=== PATIENT | male | born 1950 | race Caucasian/White ===

== ENCOUNTER → 2020-01-02 | Outpatient (CLI) | payer MEDICARE ==
--- NOTE | 2020-01-02 11:10 | ECHOS ---
STRESS ECHOCARDIOGRAM LUMASON: Vial INDICATIONS: Stress Echo MEDICATIONS: BASELINE HEART RATE: 69 BASELINE BLOOD PRESSURE: 100/59 MAXIMUM HEART RATE: 142 MAXIMUM BLOOD PRESSURE: 193/69 85% MPHR: 130 100% MPHR: 153 METS: 12.1 MAXIMUM STAGE REACHED: 4 TOTAL EXERCISE TIME: 10:30 CLINICAL INFORMATION: Baseline EKG revealed normal sinus rhythm without significant ST-T changes. Patient walked 10.5 minutes on a standard Artur protocol. Achieved a maximal heart rate of 140 beats per minute. He did not have any angina or arrhythmia. EKG did not reveal any ST- segment changes to indicate ischemia. There was no arrhythmia. The patient's heart rate was well above 85% of his predicted maximal. By EKG criteria, this is a negative stress test without evidence of ischemia. There was no angina. Baseline echo images revealed normal wall motion and wall thickening of all segments. At peak exercise, by the time images were obtained, patient's heart rate had dropped into the low 100s. However, there is no evidence to suggest ischemia. There was good augmentation of left ventricular wall motion and wall thickening of all segments suggesting that there is no stress-induced ischemia. FINAL IMPRESSION: 1. Good exercise capacity with a negative stress test by EKG criteria. 2. Normal stress echocardiogram. By the time echo images were obtained, patient's heart rate had come down rather quickly. DENNYS / PEPEN: [id number] /
== END | disposition home or self-care (01) ==
LOC: RADNMMAIN 09:02
PROVIDERS: ATTEND Internal Medicine Geriatric Medicine
DX: R07.9 Chest pain, unspecified (principal)
CPT/HCPCS: 93351

== ENCOUNTER → 2020-10-15 | Outpatient (CLI) | payer MEDICARE ==
--- NOTE | 2020-10-15 17:36 | XR ---
EXAMINATION TYPE: XR lumbar spine 2 or 3V DATE OF EXAM: 10/15/2020 COMPARISON: NONE HISTORY: Back pain TECHNIQUE: 3 views FINDINGS: The lumbar vertebra have normal alignment. Posterior elements are intact. There is no compr ession fracture. Sacroiliac joints are intact. IMPRESSION: Negative lumbar spine exam. No fracture. Atheromatous aorta.
== END | disposition home or self-care (01) ==
LOC: RADXRMAIN 16:59
PROVIDERS: ATTEND Internal Medicine Geriatric Medicine
DX: M54.9 Dorsalgia, unspecified (principal); I70.0 Atherosclerosis of aorta
CPT/HCPCS: 72100

== ENCOUNTER → 2020-10-19 | Outpatient (CLI) | payer MEDICARE ==
--- NOTE | 2020-10-20 02:42 | MR ---
EXAMINATION TYPE: MR lumbar spine wo/w con DATE OF EXAM: 10/19/2020 COMPARISON: None HISTORY: RT side lower back pain with RT leg weakness/numbness. Hx of fall 3 months ago CONTRAST: Standard multiplanar, multisequence MRI departmental protocol utilizing 7.5 mL intravenous Gadavist g adolinium contrast. The lumbar vertebra have normal alignment. Disc spaces are fairly normal for age. There is no maykel arnoldo fracture. I see no focal bone destruction. There is no lumbar paraspinal mass. The posterior kenzie ments appear intact. There is a very small posterior L5-S1 disc bulge. There is developmentally adequ ate spinal canal. There is a epidural mass in the spinal canal on the right side at the posterior asp ect of the L4 vertebral body. This does not enhance and has signal pattern consistent with sequestere d disc herniation. There is impingement on the neural foramen at right side L4-5. The visualized sacroiliac joints appear intact. 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
== END | disposition home or self-care (01) ==
LOC: RADMRIMAIN 20:58
PROVIDERS: ATTEND Internal Medicine Geriatric Medicine
DX: M51.26 Other intervertebral disc displacement, lumbar region (principal); G95.89 Other specified diseases of spinal cord
CPT/HCPCS: 72158; A9585

== ENCOUNTER → 2022-11-06 | Outpatient (CLI) | payer MEDICARE ==
[2022-11-06 15:58] LABS: HCT 45.4 % (39.6-50.0); HGB 14.6 g/dL (13.0-17.0); MCH 29.2 pg (27.0-32.0); MCHC 32.2 g/dL (32.0-37.0); MCV 90.8 fL (80.0-97.0); Mean Platelet Volume 9.6 fL (9.5-12.2); NRBC Per 100 WBC 0 /100 WBCS (0.0-0.0); Platelet Count 325 X 10*3/uL (140-440); RDW 12.7 % (11.5-14.5); WBC 6.14 X 10*3/uL (4.50-10.00)
[2022-11-06 16:10] LABS: African American GFR (CKD) 99.9 (60.0-200.0); Anion Gap 11.2 mmol/L (10.00-18.00); Blood Urea Nitrogen 12.9 mg/dL (9.0-27.0); Carbon Dioxide 27.8 mmol/L (20.0-27.5); Non-African American GFR(CKD) 86.2 (60.0-200.0); Potassium 4.7 mmol/L (3.5-5.5)
== END | disposition home or self-care (01) ==
LOC: LABPAT 10:11
PROVIDERS: ATTEND Internal Medicine Interventional Cardiology
DX: Z01.812 Encounter for preprocedural laboratory examination (principal); I25.10 Atherosclerotic heart disease of native coronary artery without angina pectoris
CPT/HCPCS: 80051; 82565; 84520; 85027

== ENCOUNTER 2022-11-13 08:37 | Day surgery (SDC) | payer MEDICARE ==
[~2022-11-13 08:37] MED LIST: ALPRAZolam 0.25 MG TAB PO PRN; ALPRAZolam 0.5 MG TAB PO PRN; ASPIRIN 325 MG TAB PO STA; ATORVASTATIN 80 MG TAB PO STA; HEPARIN SODIUM,PORCINE 10,000 UNIT in SODIUM CHLORIDE 0.9% 1,000 ML IRRIGATION PRN; HEPARIN SODIUM,PORCINE 2,500 UNIT in SODIUM CHLORIDE 0.9% 250 ML IRRIGATION PRN; NITROGLYCERIN SL TABS 0.4 MG TAB SUBLINGUAL PRN
[2022-11-13] MEDS ORDERED: SODIUM CHLORIDE 0.9% 1,000 ML IV ONE (08:49)
[2022-11-13] MEDS ORDERED: VERAPAMIL 2.5 MG/ML 2 ML AMP ONE (10:23)
[2022-11-13] MEDS ORDERED: HEPARIN SODIUM 1,000 UN/ML (10ML VL) ONE (10:23)
[2022-11-13] MEDS ORDERED: MIDAZOLAM 2 MG/2 ML VIAL IV ONE (10:32)
[2022-11-13] MEDS ORDERED: LIDOCAINE 1% INJ 10MG/ML (5 ML VIAL-PF) SQ ONE (10:34)
[2022-11-13] MEDS: VERAPAMIL SYRINGE (5 MG/10 ML) INTRAARTER ONE ×2 (10:36→10:44)
[2022-11-13] MEDS: MIDAZOLAM 2 MG/2 ML VIAL IV ONE ×2 (10:37→10:48)
[2022-11-13] MEDS: HEPARIN SODIUM 1,000 UN/ML (10ML VL) IV ONE ×3 (10:38→11:47)
[2022-11-13] MEDS ORDERED: niCARdipine 25 MG/10 ML VIAL ONE (11:01)
[2022-11-13] MEDS ORDERED: IOPAMIDOL-370 100ML BTL INJ ONE ×2 (11:26→11:46)
[2022-11-13] MEDS ORDERED: TICAGRELOR 90 MG TAB ONE (11:27)
[2022-11-13] MEDS ORDERED: TICAGRELOR 90 MG TAB PO ONE (11:30)
[2022-11-13] MEDS ORDERED: niCARdipine Syringe (1,000 mcg/10 mL) INTRACORON ONE (11:39)
[2022-11-13] MEDS ORDERED: NITROGLYCERIN 1000MCG/10ML SYRINGE INTRACORON ONE (11:40)
[2022-11-13] MEDS ORDERED: CLOBETASOL PROP 0.05% CR 15GM TOPICAL PRN (11:45)
[2022-11-13] MEDS ORDERED: ATROPINE SULFATE 0.1 MG/ML 10ML SYRINGE IV PRN (11:46)
[2022-11-13] MEDS ORDERED: ZOLPIDEM 5 MG TAB PO PRN (11:46)
[2022-11-13] MEDS ORDERED: RX INFO: IV CONTRAST WAS GIVEN 1 EACH MISC MISCELLANE PRN (11:46)
[2022-11-13] MEDS ORDERED: MAG HYDROX/AL HYDROX/SIMETH 30 ML CUP PO PRN (11:46)
[2022-11-13] MEDS ORDERED: NITROGLYCERIN SL TABS 0.4 MG TAB SUBLINGUAL PRN (11:46)
--- NOTE | 2022-11-13 11:53 | P.PCN ---
Date of Procedure: 11/13/22 Operative Findings: CARDIAC CATHETERIZATION AND PERCUTANEOUS CORONARY INTERVENTION PERFORMING PHYSICIAN: Benjamin Scanlon MD, VI PROCEDURE PERFORMED: 1. Selective right and left coronary angiogram 2. Left heart catheterization 3. Successful stenting of proximal LAD using 3.5 x 15 mm Xience VANESSA with an excellent angiographic results with adjunctive use off intravascular ultrasound 4. Adjunctive use off orbital atherectomy and lithotripsy balloon INDICATION: Chest discomfort in this 72-year-old gentleman who underwent coronary CTA and that showed critical disease involving the proximal LAD COMPLICATION: None APPROACH: Right radial artery LEVEL OF SEDATION: Moderate with the sedation time off 68 minutes PROCEDURE DESCRIPTION: After obtaining an informed consent the patient was brought to the cardiac cheesemaking laborer. The right radial artery was cannulated using micropuncture technique, the micropuncture wire passed easily then I placed a 6-Turkmen sheath. I gave the patient 2 mg of verapamil intra-arterial and subsequently heparin and intravenous with continuous ACT monitoring. Selective right and left coronary angiogram performed using JR4 and JL 3.5 catheters. Left heart catheterization was performed using a JL 3.5 catheter which cross aortic valve. After that I did intervene on the LAD. The procedure was completed was no complication SELECTIVE CORONARY ANGIOGRAM: The right coronary artery: Moderate caliber vessel and nondominant vessel appears to have mild disease only Left main: Shorts bifurcates into an LCx and LAD The left circumflex: Large caliber vessel and a dominant vessel. The LCx appears to be angiographically normal distally bifurcates into PDA and PLV branches both appeared to be angiographically normal. The LCx gives rises into an OM branch which appears to be normal The left anterior descending artery: Large caliber vessel proximally. Gives rises into a large diagonal branch at at that point the LAD has a lesion appeared to be hazy and calcified in the range of 80%. The LAD distally appears to be angiographically normal HEMODYNAMICS: LVEDP was 12 mmHg was no significant gradient across aortic valve PCI OF THE LAD: Anticoagulation was initiated using heparin with continuous ACT monitoring. Subsequently the patient was giving a loading dose of oral antiplatelet. Then I did engage the left main using JL 3.5 guiding catheter. I did wire the LAD using a run-through wire. Intravascular ultrasound was performed and showed vertical lesion appears to be calcified and the calcifications appears to be mostly in the endothelial part of the vessel. I did wire the LAD at that point using a iasel wire and that was atherectomy wire before I did orbital atherectomy with low-speed twice. Then I did balloon angioplasty using 3.5 mm lithotripsy balloon. After that I deployed a 3.5 x 15 mm stent where the stent was positioned under fluoroscopy guidance and deployed under its nominal pressure. Postdilatation was performed of the stent using 4 mm noncompliant balloon after intravascular ultrasound showed that the stent was not well deployed. The postdilatation was performed using 4 mm noncompliant balloon with final angiogram showing excellent angiographic result with a good flow in the LAD and diagonal. The procedure was completed was no complication CONCLUSION: Critical disease involving the proximal LAD. Successful PCI of the LAD was performed with a good angiographic result POSTPROCEDURE MANAGEMENT: 1. Dual antiplatelet therapy using aspirin and Brilinta for at least 6 month 2. Aggressive cholesterol control 3. Follow-up with the patient
[2022-11-13] MEDS ORDERED: SODIUM CHLORIDE 0.9% 1,000 ML in EMPTY BAG 1 BAG IV SCH (12:00)
[2022-11-13] MEDS: SODIUM CHLORIDE 0.9% 1,000 ML in EMPTY BAG 1 BAG IV SCH ×2 (17:47→18:48)
[2022-11-13] MEDS: TICAGRELOR 90 MG TAB PO SCH (20:25)
[2022-11-13 23:10] VITALS: RESP 16
[2022-11-14 03:36] VITALS: TEMP 97.5
[2022-11-14] MEDS: SODIUM CHLORIDE 0.9% 1,000 ML in EMPTY BAG 1 BAG IV SCH (07:15)
[2022-11-14] MEDS: TICAGRELOR 90 MG TAB PO SCH (07:43)
[2022-11-14 07:46] VITALS: BP 153/74; PULSE 61
[2022-11-14] MEDS ORDERED: NON FORMULARY DRUG (Ubidecarenone [Co Q-10] 100 MG Capsule) PO SCH (09:00)
[2022-11-14] MEDS ORDERED: MAGNESIUM OXIDE 400 MG TAB PO SCH (09:00)
[2022-11-14] MEDS ORDERED: NON FORMULARY DRUG (Fish Oil/Dha/Epa [Fish Oil 1,200 Mg Fish Oil] 1 EACH Capsule) PO SCH (09:00)
[2022-11-14] MEDS ORDERED: METOPROLOL SUCCINATE (ER) 25 MG TAB.ER.24H PO SCH (09:00)
[2022-11-14] MEDS ORDERED: ASPIRIN 81 MG PO SCH (09:00)
[2022-11-14] MEDS ORDERED: MULTIVITAMINS, THERA 1 EACH TAB PO SCH (09:00)
[2022-11-14] MEDS ORDERED: ATORVASTATIN 80 MG TAB PO SCH (09:00)
[2022-11-14] MEDS ORDERED: CHOLECALCIFEROL 25 MCG (1000 IU) TABLET PO SCH (09:00)
[2022-11-14 09:27] LABS: African American GFR (CKD) >90 (>60 ml/min/1.73 sqM); Non-African American GFR(CKD) >90 (>60 ml/min/1.73 sqM)
--- NOTE | 2022-11-14 09:57 | P.DS ---
Providers Attending physician: Benjamin Scanlon Consults: 11/13/22 11:46 Consult Physician Routine Consulting Provider: [facility] Consult Reason/Comments: Post Interventional Patient Do you want consulting provider notified?: Already Contacted Primary care physician: [facility] Course: The patient is a 72-year-old gentleman who underwent yesterday successful atherectomy and balloon angioplasty and stenting of the proximal left anterior descending artery He was seen this morning. He is asymptomatic from the cardiac standpoint of view. He is hemodynamically stable as well. The right radial site soft and n ontender was no hematoma and no bruises with a good pulse. The physical examination is unremarkable. He does have regular rhythm with clear breathing sounds bilaterally. The patient is going to be discharged home on dual antiplatelet therapy and I will follow-up with the patient next week in the office Plan - Discharge Summary Discharge Rx Participant: No New Discharge Prescriptions: New Ticagrelor [Brilinta] 90 mg PO BID #180 tablet Continue Aspirin 81 mg PO DAILY Cholecalciferol [Vitamin D3 (25 Mcg = 1000 Iu)] 2,000 unit PO DAILY Ubidecarenone [Co Q-10] 200 mg PO DAILY Multivitamin [Men's Multi-Vitamin] 1 each PO DAILY Fish Oil/Dha/Epa [Fish Oil 1,200 mg Fish Oil] 1 each PO DAILY Clobetasol Propionate [Clobex [place] 0.05%] 1 spray TOPICAL DAILY PRN PRN Reason: psoriasis Rosuvastatin Calcium [Crestor] 40 mg PO DAILY Metoprolol Succinate (ER) [Toprol XL] 12.5 mg PO DAILY Magnesium 200 mg PO DAILY Discharge Medication List Aspirin 81 mg PO DAILY 07/25/14 [History] Cholecalciferol [Vitamin D3 (25 Mcg = 1000 Iu)] 2,000 unit PO DAILY 01/14/16 [History] Clobetasol Propionate [Clobex [place] 0.05%] 1 spray TOPICAL DAILY PRN 01/14/16 [History] Fish Oil/Dha/Epa [Fish Oil 1,200 mg Fish Oil] 1 each PO DAILY 01/14/16 [History] Multivitamin [Men's Multi-Vitamin] 1 each PO DAILY 01/14/16 [History] Ubidecarenone [Co Q-10] 200 mg PO DAILY 01/14/16 [History] Magnesium 200 mg PO DAILY 11/11/22 [History] Metoprolol Succinate (ER) [Toprol XL] 12.5 mg PO DAILY 11/11/22 [History] Rosuvastatin Calcium [Crestor] 40 mg PO DAILY 11/11/22 [History] Ticagrelor [Brilinta] 90 mg PO BID #180 tablet 11/14/22 [Rx] Follow up Appointment(s)/Referral(s): Benjamin Scanlon MD [STAFF PHYSICIAN] - 1 Week (APPOINTMENT MADE ON November @ 2:45PM ) Patient Instructions/Handouts: Moderate Sedation (DC), After Radial Heart Catheterization (GEN) Activity/Diet/Wound Care/Special Instructions: *NO LIFTING, PUSHING, OR PULLING ANYTHING OVER 5 POUNDS FOR 5 DAYS *NO DRIVING FOR 3 DAYS *YOU CAN REMOVE YOUR DRESSING TOMORROW AND SHOWER AT THAT TIME - DO NOT SUBMERSE YOUR PUNCTURE SITE IN WATER FOR A FEW DAYS TO PREVENT INFECTIO - SO NO TUB BATHS, POOLS, HOT TUBS, DISHES...ETC *ANY SIGNS OF BLEEDING (HARDNESS, SWELLING, OR EXCESSIVE BRUISING) HOLD DIRECT PRESSURE ON YOUR PUNCTURE SITE AND COME TO THE NEAREST EMERGENCY ROOM TO GET YOUR PUNCTURE SITE LOOKED AT - DO NOT DRIVE YOURSELF! EITHER CALL EMS OR HAVE SOMEONE DRIVE YOU!
== END 2022-11-14 11:06 | disposition home or self-care (01) ==
LOC: CATHCVL 08:37 → 3SCARD 18:31 → CATHCVL 11-14 11:06
PROVIDERS: ATTEND Internal Medicine Interventional Cardiology
DX: I25.10 Atherosclerotic heart disease of native coronary artery without angina pectoris (principal); I25.9 Chronic ischemic heart disease, unspecified; E78.5 Hyperlipidemia, unspecified; F17.210 Nicotine dependence, cigarettes, uncomplicated; Z79.01 Long term (current) use of anticoagulants; Z79.02 Long term (current) use of antithrombotics/antiplatelets; Z79.82 Long term (current) use of aspirin
CPT/HCPCS: 99152; 99153 ×4; 92978; 93458; 0715T; 82565; C9602; C1887; C1769 ×3; C1894; C1753; C1724; C1874; C1761; C1725; J2250; J2001; J1644; Q9967

== ENCOUNTER → 2023-01-12 | Outpatient (CLI) | payer MEDICARE | END | disposition home or self-care (01) | LOC: LABWHC1 14:02 | PROVIDERS: ATTEND Urology | DX: R97.20 Elevated prostate specific antigen [PSA] (principal) | CPT/HCPCS: 36415; 84153 ==

== ENCOUNTER → 2023-07-11 | Outpatient (CLI) | payer MEDICARE ==
[2023-07-12 06:04] LABS: Basophils # (A) 0.04 X 10*3/uL (0.00-0.10); Basophils % (A) 0.6 %; Eosinophils # (A) 0.25 X 10*3/uL (0.04-0.35); Eosinophils % (A) 3.9 %; HCT 43.5 % (39.6-50.0); HGB 14.2 g/dL (13.0-17.0); Lymphocytes # (A) 1.49 X 10*3/uL (0.90-5.00); Lymphocytes % (A) 23.1 %; MCH 30.2 pg (27.0-32.0); MCHC 32.6 g/dL (32.0-37.0); MCV 92.6 FL (80.0-97.0); Mean Platelet Volume 9.5 FL (9.5-12.2); Monocytes # (A) 0.45 X 10*3/uL (0.20-1.00); NRBC Per 100 WBC 0 X 10*3/uL (0.00-0.01); Neutrophils # (A) 4.18 X 10*3/uL (1.80-7.70); Neutrophils % (A) 64.6 %; Platelet Count 375 X 10*3/uL (140-440); RDW 12.5 % (11.5-14.5); WBC 6.46 X 10*3/uL (4.50-10.00)
[2023-07-12 06:46] LABS: ALT 36 U/L (10-49); AST 26 U/L (14-35); Albumin 4.3 g/dL (3.8-4.9); Albumin/Globulin Ratio 1.95 Ratio (1.60-3.17); Alkaline Phosphatase 59 U/L (41-126); BUN/Creat Ratio 20.33 Ratio (12.00-20.00); Blood Urea Nitrogen 18.3 mg/dL (9.0-27.0); Calcium 9.6 mg/dL (8.7-10.3); Carbon Dioxide 27.5 mmol/L (21.6-31.8); Chloride 104 mmol/L (96-109); Globulin 2.2 g/dL (1.6-3.3); Glucose 99 mg/dL (70-110); LDL Cholesterol,Calculated 86.7 mg/dL (0.0-131.0); Potassium 4.5 mmol/L (3.5-5.5); Sodium 140 mmol/L (135-145); Total Bilirubin 0.5 mg/dL (0.3-1.2); Total Protein 6.5 g/dL (6.2-8.2)
[2023-07-12 07:33] LABS: Creatine Kinase 98 U/L (35-257); Prostate Specific Antigen 5.23 ng/mL (0.000-6.500)
== END | disposition home or self-care (01) ==
LOC: LABWHC1 10:31
PROVIDERS: ATTEND Internal Medicine Geriatric Medicine
DX: Z00.00 Encounter for general adult medical examination without abnormal findings (principal); I25.10 Atherosclerotic heart disease of native coronary artery without angina pectoris; R97.20 Elevated prostate specific antigen [PSA]; R73.9 Hyperglycemia, unspecified
CPT/HCPCS: 36415; 80053; 80061; 82550; 83036; 84153; 84443; 85025

== ENCOUNTER → 2025-01-06 | Outpatient (CLI) | payer MEDICARE | END | disposition home or self-care (01) | LOC: LABWHC1 09:27 | PROVIDERS: ATTEND Urology | DX: R97.20 Elevated prostate specific antigen [PSA] (principal) | CPT/HCPCS: 36415; 84153 ==